=== PATIENT | male | born 1980 | race Caucasian/White ===

== ENCOUNTER 2020-11-26 16:54 | Emergency (ER) | payer MEDICAID, OTHER ==
[~2020-11-26] VITALS: Ht 170.2 cm; Wt 145.4 kg
[2020-11-26 17:32] VITALS: BP 187/97
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
[2020-11-26] MEDS ORDERED: cyclobenzaprine 10mg tablet PO ONE (17:50)
[2020-11-26] MEDS ORDERED: ketorolac tromethamine 15mg/ml inj. IM ONE (17:50)
[2020-11-26] MEDS ORDERED: CYCL-1 PO (17:58)
[2020-11-26] MEDS ORDERED: IBUP-1984 PO (17:58)
== END 2020-11-26 18:32 | disposition home or self-care (01) ==
LOC: ER 16:54
DX: S16.1XXA Strain of muscle, fascia and tendon at neck level, initial encounter (principal); M54.6 Pain in thoracic spine; Z79.899 Other long term (current) drug therapy; V49.9XXA Car occupant (driver) (passenger) injured in unspecified traffic accident, initial encounter; Y93.89 Activity, other specified; Y92.511 Restaurant or cafe as the place of occurrence of the external cause; Y99.8 Other external cause status
CPT/HCPCS: 96372; 99283; J1885